=== PATIENT | female | born 1990 ===

== ENCOUNTER 2018-11-03 09:20 | Observation (INO) | payer OTHER ==
[2018-11-03] MEDS ORDERED: GABAPENTIN 300 MG CAP PO ONE (09:28)
[2018-11-03] MEDS ORDERED: PHENAZOPYRIDINE HCL 200 MG TAB PO ONE (09:28)
[2018-11-03] MEDS ORDERED: ceFAZolin 2 GM/DEXTROSE 100 ML IV ONE (09:28)
[2018-11-03] MEDS ORDERED: ACETAMINOPHEN 500 MG TAB PO ONE (09:28)
[2018-11-03] MEDS ORDERED: LR 1,000 ML IV ONE (09:29)
[2018-11-03] MEDS ORDERED: LIDOCAINE 1% 2 ML INJ ID PRN (09:29)
[2018-11-03] MEDS ORDERED: MIDAZOLAM 2 MG/2 ML VIAL IVP ONE (09:38)
--- NOTE | 2018-11-03 09:38 | PDHPUP ---
History & Physical Update H&P update statement: This history and physical update is based on an assessment of the patient which was completed after admission or registration (within 24 hours), but prior to the surgery/procedure. H&P update: H&P reviewed & patient examined, no change in patient's condition since H&P completed
--- NOTE | 2018-11-03 09:38 | PDANEPAE ---
ANE History of Present Illness robotic endometrial ablation ANE Past Medical History - Cardiovascular History Hx Hypertension: No Hx Arrhythmias: No Hx Chest Pain: No Hx Coronary Artery / Peripheral Vascular Disease: No Hx CHF / Valvular Disease: No Hx Palpitations: No - Pulmonary History Hx COPD: No Hx Asthma/Reactive Airway Disease: No Hx Recent Upper Respiratory Infection: No Hx Oxygen in Use at Home: No Hx Sleep Apnea: No Sleep Apnea Screening Result - Last Documented: Negative - Neurologic History Hx Cerebrovascular Accident: No Hx Seizures: No Hx Dementia: No - Endocrine History Hx Diabetes: No - Renal History Hx Renal Disorders: No - Liver History Hx Hepatic Disorders: No - Neurological & Psychiatric Hx Hx Neurological and Psychiatric Disorders: No - Cancer History Hx Cancer: No - Congenital Disorder History Hx Congenital Disorders: No - GI History Hx Gastrointestinal Disorders: Yes Gastrointestinal History Comment: reflux. hx of constipation. hx of egd and colonoscopy - Other Health History Other Health History: none - Chronic Pain History Chronic Pain: No - Surgical History Prior Surgeries: EGD and colonoscopy ANE Review of Systems Review of Systems: - Exercise capacity METS (RN): 4 METS ANE Patient History - Allergies Allergies/Adverse Reactions: No Known Allergies Allergy (Verified 10/20/18 12:33) - Home Medications Home Medications: Loestrin 21 1-20 Tablet 10/20/18 [Last Taken Unknown] - NPO status NPO Status: no food or drink >8 hours - Anes Hx Anes Hx: no prior problems - Smoking Hx Smoking Status: Never smoked - Alcohol Use Alcohol Use: Occasionally - Family Anes Hx Family Anes Hx: none Family Hx Anesthesia Complications: none ANE Labs/Vital Signs - Vital Signs Vital Signs: reviewed preoperatively; see RN documention for details Height: 167.64 cm Weight: 63.503 kg ANE Physical Exam - Airway Neck exam: FROM Mallampati Score: Class 2 Mouth exam: normal dental/mouth exam - Pulmonary Pulmonary: no respiratory distress, clear to auscultation - Cardiovascular Cardiovascular: regular rate and rhythym, no murmur, rub, or gallop - ASA Status ASA Status: II ANE Anesthesia Plan Anesthesia Plan: general endotracheal anesthesia
[2018-11-03] MEDS ORDERED: LIDOCAINE 2% 100 MG/5 ML SYR ONE (09:41)
[2018-11-03] MEDS ORDERED: PROPOFOL 200 MG/20 ML VIAL ONE (09:41)
[2018-11-03] MEDS ORDERED: fentaNYL 100 MCG/2 ML INJ ONE ×4 (09:41→13:03)
[2018-11-03] MEDS ORDERED: ROCURONIUM 50 MG/5 ML VIAL ONE (09:41)
[2018-11-03] MEDS ORDERED: PROPOFOL/EMULSION 500 MG/50 ML BOTTLE IV ONE (09:45)
[2018-11-03] MEDS ORDERED: BUPIVACAINE/EPI 0.5% 30 ML SDV ONE (09:52)
[2018-11-03] MEDS ORDERED: ONDANSETRON DISINTEGRATING 4 MG TAB PO PRN (11:27)
[2018-11-03] MEDS ORDERED: PROMETHAZINE HCL 25 MG/ML INJ IVP PRN ×2 (11:27→11:30)
[2018-11-03] MEDS ORDERED: OXYCODONE/APAP 5/325 TAB PO PRN (11:27)
[2018-11-03] MEDS ORDERED: HYDROmorphONE/DILAUDID 1 MG/ML INJ IVP PRN (11:27)
[2018-11-03] MEDS ORDERED: HYDROCODONE/APAP 5/325 TAB PO PRN ×2 (11:27→11:30)
[2018-11-03] MEDS ORDERED: ONDANSETRON 4 MG/2 ML VIAL IVP PRN (11:30)
[2018-11-03] MEDS ORDERED: ACETAMINOPHEN 500 MG TAB PO PRN (11:30)
[2018-11-03] MEDS ORDERED: LR 1,000 ML IV SCH (11:30)
[2018-11-03] MEDS ORDERED: oxyCODONE IR 5 MG TAB PO PRN (11:30)
[2018-11-03] MEDS ORDERED: DIAZEPAM 5 MG/ML 1 ML SYR IVP PRN (11:30)
[2018-11-03] MEDS ORDERED: NALOXONE HCL 0.4 MG/ML INJ IVP PRN (11:30)
--- NOTE | 2018-11-03 11:31 | POSTANESTH ---
Post Anesthetic Evaluation Cardiovascular Status: Normal, Stable, Similar to Pre-Op Cond Respiratory Status: Normal, Stable, Similar to Pre-op Cond. Level of Consciousness/Mental Status: Can Participate in Eval, Moderately Sleepy Pain Control: Adequate, Prn Tx Ordered Nausea/Vomiting Control: Adequate, Prn Tx Ordered Complications Possibly Related to Anesthesia: None Noted
[2018-11-03] MEDS ORDERED: DIAZEPAM 5 MG/ML 1 ML SYR ONE (11:45)
[2018-11-03] MEDS ORDERED: ONDANSETRON 4 MG/2 ML VIAL ONE (11:45)
[2018-11-03] MEDS ORDERED: PROMETHAZINE HCL 25 MG/ML INJ ONE (11:59)
[2018-11-03] MEDS: fentaNYL 100 MCG/2 ML INJ IVP PRN ×5 (12:02→13:19)
--- NOTE | 2018-11-03 12:33 | GOP ---
[f rep st] OPERATIVE REPORT DATE OF OPERATION: 11/03/2018 SURGEON: Grady Singh MD PARTS FACILITATOR: Krystal Valle CFA. ANESTHESIA: General. PREOPERATIVE DIAGNOSIS: 1. Endometriosis. 2. Pelvic pain. 3. Incomplete uterine prolapse. 4. Midcycle pain. POSTOPERATIVE DIAGNOSIS: 1. Endometriosis. 2. Pelvic pain. 3. Incomplete uterine prolapse. 4. Midcycle pain. PROCEDURE PERFORMED: 1. Robotic-assisted total laparoscopic hysterectomy, bilateral salpingectomy, right oophorectomy. 2. Excision of endometriosis in the anterior and posterior cul-de-sac and bilateral pelvic side wall s. 3. Uterosacral ligament colpopexy. 4. Bilateral ureterolysis. 5. Left ovarian pexy. FINDINGS: SPECIMENS: 1. Uterus, bilateral tubes, right ovary. 1. Pelvic peritoneum with endometriosis. 2. ESTIMATED BLOOD LOSS: Scant. DESCRIPTION OF PROCEDURE: The patient was taken to the operating room where she was identified. Gen eral anesthesia was administered and found to be adequate. She was placed in the lithotomy position and prepared and draped in normal sterile fashion. A Adrian cath was placed in her bladder. A Zuldiare uterine manipulator was placed into the endometrial cavity. A 1 cm infraumbilical incision was made with a scalpel. The Veress needle with CO2 gas flowing was a dvanced into the peritoneal cavity. The abdomen was then insufflated with carbon dioxide gas. The 1 2 mm trocar, followed by the laparoscope, was then inserted. The upper abdomen was unremarkable. Th ere was no evidence of endometriosis on either diaphragm, liver, stomach, gallbladder, or upper abdom inal bowel. Two lateral ports were placed in the right, one in the left under direct visualization. The patient was then placed in Trendelenburg position, and the da Yunior robot docked on the left johann e. The instruments were then brought into the abdominal cavity under direct visualization. She was noted to have endometriosis overlying much of the serosal surface of the uterus. She also had lesion s in the anterior and posterior cul-de-sac and bilateral pelvic sidewalls overlying both ureters. Sh e had lesions on the right ovary but only 2 small ones on the left. Per the patient's request, she t hen underwent a hysterectomy, in addition to the excision of endometriosis. The left fallopian tube was along the mesosalpinx. The utero-ovarian ligament, followed by the round ligament, was then cauterized and transected. The anterior lip of the broad ligament was then incised over the le ft uterine vessels and across the cervix. The bladder was gently dissected off the cervix and upper vagina. The left uterine vasculature was then cauterized and transected. The right round ligament was divided. The anterior leaf of the broad ligament was then incised towar d the bifurcation of the right common iliac vessels. A window was created in the posterior leaf ante rior to the ureter to skeletonize the infundibulopelvic vessels on the right. They were then cauteri zed and transected. The uterine vasculature was then clamped, cut, and divided on the right. The an terior cul-de-sac peritoneum was completely excised. The uterus was then anteverted, and the entire posterior cul-de-sac peritoneum from the distal rectum up to the cervix and laterally to the uterosac ral ligaments was then completely excised. She required bilateral ureterolysis to safely remove the endometriosis overlying both ureters. The peritoneum at the pelvic brims was incised. The ureters w ere gently dissected free and lateralized off the overlying peritoneum and endometriosis from the pel murphy brim down to the bladder. Once this was accomplished, the entire sidewall peritoneum was excised bilaterally. A circumferential colpotomy incision was then made with the hot tucker, and all specim ens were removed through the vagina. The vaginal cuff was closed with a running suture of 0 V-Loc 18 0. A bilateral uterosacral ligament colpopexy was performed by attaching the lateral aspects of the vaginal cuff to the ipsilateral uterosacral ligaments near the coccygeal-sacrospinous ligament comple xes. The pelvis was then irrigated with sterile saline, and hemostasis was present. A left ovarian pexy was then performed by attaching the left ovary to the left round ligament near the internal ingu inal ring with 3-0 Vicryl Rapide suture. The robot was then undocked. The fascia was closed with 0 Vicryl, the skin with 4-0 Monocryl. Cystoscopy was then performed. Both ureters had vigorous jets of urine. There was no evidence of bl adder nor urethral injury seen. No obvious pathology was seen. Anesthesia was reversed. The patien t taken the PACU awake, in stable condition. COMPLICATIONS: None. DISPOSITION: Patient stable to PACU. /[id number]/MODL
[2018-11-03] MEDS ORDERED: HYDROmorphONE/DILAUDID 2 MG/ML INJ ONE (12:37)
[2018-11-03] MEDS: HYDROmorphONE/DILAUDID 2 MG/ML INJ IVP PRN ×2 (12:39→12:45)
[2018-11-03] MEDS ORDERED: HYDROCODONE/APAP 10/325 TAB ONE (12:55)
[2018-11-03] MEDS: KETOROLAC 30 MG/1 ML SDV IVP SCH ×3 (14:46→22:48)
[2018-11-03] MEDS: GABAPENTIN 300 MG CAP PO SCH ×2 (15:45→21:49)
[2018-11-03] MEDS: ACETAMINOPHEN 500 MG TAB PO PRN ×2 (15:48→23:49)
[2018-11-03] MEDS: oxyCODONE IR 5 MG TAB PO PRN ×2 (16:45→20:49)
[2018-11-03] MEDS: SIMETHICONE 80 MG TAB CHEW PO SCH ×2 (19:15→20:49)
[2018-11-03] MEDS: DOCUSATE SODIUM 100 MG CAP PO SCH (20:49)
[2018-11-04] MEDS: oxyCODONE IR 5 MG TAB PO PRN ×3 (00:47→16:57)
[2018-11-04] MEDS: KETOROLAC 30 MG/1 ML SDV IVP SCH (04:49)
[2018-11-04 05:05] LABS: PLATELET COUNT 258 10^3/uL (150-400)
[2018-11-04] MEDS: ACETAMINOPHEN 500 MG TAB PO PRN ×2 (07:44→16:11)
[2018-11-04] MEDS: ONDANSETRON 4 MG/2 ML VIAL IVP PRN ×2 (08:42→13:00)
[2018-11-04] MEDS: DOCUSATE SODIUM 100 MG CAP PO SCH (08:43)
[2018-11-04] MEDS: GABAPENTIN 300 MG CAP PO SCH ×2 (08:43→16:15)
[2018-11-04] MEDS ORDERED: KETOROLAC 30 MG/1 ML SDV IVP ONE (09:00)
[2018-11-04 09:12] VITALS: BP 109/63
--- NOTE | 2018-11-04 10:43 | GDS ---
[f rep st] DISCHARGE SUMMARY DISCHARGE DIAGNOSES: 1. Endometriosis. 2. Dysmenorrhea. PROCEDURES: 1. Robotic-assisted total laparoscopic hysterectomy, bilateral salpingectomy, right oophorectomy. 2. Excision of endometriosis in anterior, posterior cul-de-sac bilateral pelvic side cardona. 3. Bilateral ureterolysis. 4. Left ovariopexy. 5. Uterosacral ligament colpopexy. HISTORY: The patient is a 28-year-old female with a long history of pelvic pain from endometriosis. She was taken to the operating room on 11/03/2018, where she underwent the above-mentioned procedure s without complications. Her postoperative course was relatively uneventful. The morning after surg zenia, she was ambulating, voiding, and tolerating a general diet. She was discharged home on postoper ative day #1 in good condition. Medications included. Ibuprofen Dilaudid and Tylenol for pain and Z ofran for nausea. She was to follow up in the office 2 weeks after discharge. /[id number]/MODL
[2018-11-04] MEDS: SIMETHICONE 80 MG TAB CHEW PO SCH ×3 (11:01→16:53)
== END 2018-11-04 17:15 | disposition home or self-care (01) ==
LOC: FSGY 09:20 → F3E 11:27 → FOB 14:40
PROVIDERS: ADMIT Obstetrics & Gynecology; ATTEND Obstetrics & Gynecology
DX: N80.3 Endometriosis of pelvic peritoneum (principal); N94.5 Secondary dysmenorrhea; N81.2 Incomplete uterovaginal prolapse; R10.2 Pelvic and perineal pain
CPT/HCPCS: 57425; 58571; 58662; 58679; G0378; J0690; J1170; J1885; J2001; J2250; J2405; J2550; J2704; J3010; J3360